=== PATIENT | female | born 1970 | race Caucasian/White ===

== ENCOUNTER 2016-11-09 12:14 | Emergency (ER) | payer MEDICAID ==
[~2016-11-09] VITALS: Ht 157.5 cm; Wt 70.5 kg
[~2016-11-09 12:14] MED LIST: ALLERGY10 MG PO; AMOXICILLIN 50500 MG PO; AMOXICILLIN875 MG PO; ANXIETY/DEPRESSION; BIOTIN1 MG PO; BUPROBAN150 MG PO; CARAFATE 1GM1 G PO; CEFTIN250 M1 PO; CEPHALEXIN500 M1 PO; CITRACAL + D CA1 TAB PO; CLARITIN 1010 MG/TAB PO; COLACE 100100 MG/CAP PO; CORTISPORIN EAR10 ML OT; DESYREL 100MG100 MG PO; DESYREL 50MG50 MG; DIFLUCAN200 MG PO; FERROUS SULFATE27 MG PO; FLAGYL500 MG PO; FLEXERIL 1010 MG/TAB PO; FLEXERIL5 MG PO; FLOMAX 0.40.4 MG/CAP PO; LAMICTAL XR200 MG PO; LATUDA40 MG PO; LEXAPRO; LEXAPRO20 MG PO; LORTAB 5/500 501 TAB PO; MIRALAX PA17 GM/Dose PO; MUCINEX 60600 MG/TA1 PO; MULTI VITAMINS1 TAB PO; MULTIPLE VITAMI1 TA5 PO; NATURAL IRON65 MG PO; NATURE'S BLE1000 MCG PO; NEURONTIN300 MG/CAP PO; NEXIUM 40MG40 MG PO; NO HOME MEDICATIONS; NORCO 325 MG-51 TAB PO; NORCO 325 MG-7.1 TAB PO; PERCOCET 325 MG1 TA2 PO; PHENERGAN W/CO120 M1 PO; PRIL40 PO; PRILOSEC 20MG20 MG PO; REXULTI1 MG PO; RITE AID BIO2500 MCG PO; SINGULAIR 110 MG/TAB PO; SUDAFED60 MG PO; TOPAMAX100 MG PO; TRAZODO50 MG PO; TRAZODONE50 MG PO; TUSS PO; ULTRAM 50MG TAB50 MG PO; VIIBRYD10 MG PO; VITAMIN B121000 MC2 SL; WELLBUTRIN SR100 M1 PO; WELLBUTRIN SR150 M1 PO; ZOFRAN 4MG T4 MG/TAB PO; ZOFRAN ODT4 MG PO; ZOFRAN ODT8 MG PO; ZOLOFT; [UNRECOGNIZED DRUG - OTHER] VG
[2016-11-09 12:18] VITALS: BP 141/74; TEMP 99.4
[2016-11-09 13:43] LABS: BASO % 0.4 % (0.0-2.0); EOS # 0.1 (0.0-0.7); EOS % 0.6 % (0-4.0); GRAN # 5.7 (1.4-6.5); HEMATOCRIT 43.5 % (37.0-47.0); HEMOGLOBIN 14.7 g/dl (12.5-16.0); LYMPH # 1.5 (1.2-3.4); LYMPH % 19.1 % (20.0-51.0); MEAN CELL VOLUME 95 fl (80.0-100.0); MEAN CORPUSCULAR HEMOGLOBIN 32 pg (27.0-31.0); MEAN CORPUSCULAR HGB CONC 34 g/dl (33.0-37.0); MEAN PLATELET VOLUME 11.7 fl (7.4-10.4); MONO # 0.6 (0.1-0.6); MONO % 7.5 % (1.7-9.3); PLATELET COUNT 180 K/mm3 (130-400); RED BLOOD COUNT 4.56 M/mm3 (4.10-5.30); REDCELL DISTRIBUTION WIDTH-CV 12.6 % (11.5-14.5)
[2016-11-09 13:57] LABS: ADJUSTED CALCIUM 9.5 mg/dL (8.4-10.2); ALBUMIN 3.9 gm/dL (3.5-5.0); BILIRUBIN,TOTAL 0.5 mg/dL (0.0-1.0); C-REACTIVE PROTEIN 2.3 mg/dL (0.0-0.9); CALCIUM 9.4 mg/dL (8.4-10.2); CREATININE, serum 0.85 mg/dL (0.52-1.25); POTASSIUM 3.9 mmol/L (3.4-5.0); TOTAL PROTEIN 7.2 gm/dL (6.4-8.2)
[2016-11-09 14:01] LABS: INFLUENZA B NEGATIVE
[2016-11-09 14:07] LABS: PH 5 (5-8); SQUAMOUS EPITHELIAL 0-2 /hpf; URINE APPEARANCE Clear; URINE BACTERIA None Seen /hpf; URINE BILIRUBIN Negative (NEGATIVE); URINE BLOOD Negative (NEGATIVE); URINE COLOR Yellow; URINE GLUCOSE Negative (NEGATIVE); URINE KETONE 2+ (NEGATIVE); URINE RBC 0-2 /hpf; URINE UROBILINOGEN Negative (NEGATIVE); URINE WBC 0-2 /hpf
[2016-11-09 15:06] VITALS: PULSE 96
[2017-05-16] MEDS ORDERED: SEROQUEL 200MG200 MG PO (14:49)
== END 2016-11-09 15:06 | disposition home or self-care (01) ==
LOC: COL.ER 12:14
PROVIDERS: Nurse Practitioner
DX: J10.1 Influenza due to other identified influenza virus with other respiratory manifestations (principal); F17.210 Nicotine dependence, cigarettes, uncomplicated; R10.817 Generalized abdominal tenderness
CPT/HCPCS: J2405; J7030

== ENCOUNTER 2017-02-22 16:09 | Emergency (ER) | payer MEDICAID ==
[~2017-02-22] VITALS: Ht 154.9 cm; Wt 70.5 kg
[2017-02-22 16:12] VITALS: BP 137/81; TEMP 98.8
[2017-02-22] MEDS ORDERED: BACTRIM DS 8001 TAB PO (16:29)
[2017-02-22] MEDS ORDERED: CEPHALEXIN500 M1 PO (16:29)
[2017-02-22 17:08] VITALS: PULSE 78
[2017-05-16] MEDS ORDERED: SEROQUEL 200MG200 MG PO (14:49)
== END 2017-02-22 17:08 | disposition home or self-care (01) ==
LOC: COL.ER 16:09
DX: L03.211 Cellulitis of face (principal); F41.9 Anxiety disorder, unspecified; Z98.84 Bariatric surgery status

== ENCOUNTER 2017-03-02 10:36 | Emergency (ER) | payer MEDICAID ==
[~2017-03-02] VITALS: Ht 154.9 cm; Wt 70.5 kg
[~2017-03-02 10:36] MED LIST changes: +BACTRIM DS 8001 TAB PO
[2017-03-02 10:46] VITALS: BP 107/79; TEMP 98.5
[2017-03-02 11:21] LABS: BASO % 0.4 % (0.0-2.0); EOS # 0.2 (0.0-0.7); EOS % 1.9 % (0-4.0); GRAN # 4.1 (1.4-6.5); GRAN % 47.4 % (42.2-75.2); HEMATOCRIT 42.4 % (37.0-47.0); LYMPH # 3.7 (1.2-3.4); LYMPH % 43.1 % (20.0-51.0); MEAN CELL VOLUME 96 fl (80.0-100.0); MEAN CORPUSCULAR HEMOGLOBIN 32 pg (27.0-31.0); MEAN CORPUSCULAR HGB CONC 33 g/dl (33.0-37.0); MEAN PLATELET VOLUME 10.8 fl (7.4-10.4); MONO # 0.6 (0.1-0.6); PLATELET COUNT 240 K/mm3 (130-400); RED BLOOD COUNT 4.41 M/mm3 (4.10-5.30); WHITE BLOOD COUNT 8.6 K/mm3 (4.8-10.8)
[2017-03-02 11:33] LABS: ADJUSTED CALCIUM 8.7 mg/dL (8.4-10.2); ALANINE AMINOTRANSFERASE 19 U/L (9-52); ALBUMIN 4.1 gm/dL (3.5-5.0); ALKALINE PHOSPHATASE 66 U/L (50-136); ANION GAP 12 mmol/L (7-16); BILIRUBIN,TOTAL 0.6 mg/dL (0.0-1.0); BLOOD UREA NITROGEN 10 mg/dL (7-17); CALCIUM 8.8 mg/dL (8.4-10.2); CARBON DIOXIDE 24 mmol/L (22-30); CHLORIDE 103 mmol/L (98-107); CREATININE, serum 0.84 mg/dL (0.52-1.25); GLUCOSE 67 mg/dL (74-106); POTASSIUM 3.9 mmol/L (3.4-5.0); SODIUM 139 mmol/L (137-145); TOTAL PROTEIN 7.1 gm/dL (6.4-8.2)
[2017-03-02 11:38] LABS: AMPHETAMINE URINE NEGATIVE; BARBITURATES URINE NEGATIVE; BENZODIAZEPINES URINE POSITIVE; BUPRENORPHINE URINE NEGATIVE; METHADONE URINE NEGATIVE; OPIATES URINE NEGATIVE; OXYCODONE URINE NEGATIVE; PHENCYCLIDINE URINE NEGATIVE; PROPOXYPHENE URINE NEGATIVE; THC CANNABINOIDS URINE POSITIVE
[2017-03-02 11:38] LABS: ACETAMINOPHEN < 10 ug/mL (10-30); SALICYLATE < 1.0 mg/dL
[2017-03-02 14:35] VITALS: PULSE 76
[2017-05-16] MEDS ORDERED: SEROQUEL 200MG200 MG PO (14:49)
== END 2017-03-02 14:37 | disposition home or self-care (01) ==
LOC: COL.ER 10:36
PROVIDERS: Physician Assistant
DX: F32.9 Major depressive disorder, single episode, unspecified (principal); F41.9 Anxiety disorder, unspecified; F17.210 Nicotine dependence, cigarettes, uncomplicated

== ENCOUNTER → 2017-05-16 | Outpatient (CLI) | payer MEDICAID ==
[~2017-05-16] VITALS: Ht 154.9 cm; Wt 70.3 kg
[~2017-05-16] MED LIST changes: +MAGIC MOUTHWASH1 M1 PO; +SEROQUEL 200MG200 MG PO
[2017-05-16 14:49] VITALS: BP 114/80
== END ==
LOC: LIGHT 14:20
DX: Z98.84 Bariatric surgery status (principal); Z68.29 Body mass index [BMI] 29.0-29.9, adult; Z71.3 Dietary counseling and surveillance

== ENCOUNTER 2017-05-23 11:37 | Emergency (ER) | payer MEDICAID ==
[~2017-05-23] VITALS: Ht 154.9 cm; Wt 70.5 kg
[~2017-05-23 11:37] MED LIST changes: -MAGIC MOUTHWASH1 M1 PO
[2017-05-23 11:38] VITALS: BP 137/82; TEMP 98.8
[2017-05-23 12:36] LABS: BASO # 0.1 (0.0-0.2); BASO % 0.6 % (0.0-2.0); EOS # 0.1 (0.0-0.7); EOS % 1.5 % (0-4.0); GRAN # 4.8 (1.4-6.5); GRAN % 56.4 % (42.2-75.2); HEMATOCRIT 38.2 % (37.0-47.0); HEMOGLOBIN 12.6 g/dl (12.5-16.0); LYMPH # 3.1 (1.2-3.4); MEAN CELL VOLUME 97 fl (80.0-100.0); MEAN CORPUSCULAR HEMOGLOBIN 32 pg (27.0-31.0); MEAN CORPUSCULAR HGB CONC 33 g/dl (33.0-37.0); MEAN PLATELET VOLUME 11.2 fl (7.4-10.4); MONO # 0.5 (0.1-0.6); MONO % 5.3 % (1.7-9.3); PLATELET COUNT 224 K/mm3 (130-400); RED BLOOD COUNT 3.96 M/mm3 (4.10-5.30); REDCELL DISTRIBUTION WIDTH-CV 12.4 % (11.5-14.5); WHITE BLOOD COUNT 8.5 K/mm3 (4.8-10.8)
[2017-05-23] MEDS ORDERED: MAGIC MOUTHWASH1 M1 PO (13:25)
[2017-05-23 13:40] VITALS: PULSE 68
== END 2017-05-23 13:40 | disposition home or self-care (01) ==
LOC: COL.ER 11:37
PROVIDERS: Physician Assistant
DX: K14.0 Glossitis (principal); F41.9 Anxiety disorder, unspecified; F32.9 Major depressive disorder, single episode, unspecified

== ENCOUNTER 2018-04-03 12:24 | Emergency (ER) | payer MEDICAID ==
[~2018-04-03] VITALS: Ht 154.9 cm; Wt 79.5 kg
[~2018-04-03 12:24] MED LIST changes: +MAGIC MOUTHWASH1 M1 PO
[2018-04-03 12:29] VITALS: TEMP 97.8
[2018-04-03] MEDS ORDERED: NEXIUM 20MG20 MG PO (13:08)
[2018-04-03] MEDS ORDERED: VRAYLAR3 MG PO (13:09)
[2018-04-03] MEDS ORDERED: DESYREL 50MG50 MG PO (13:10)
[2018-04-03] MEDS ORDERED: VISTARIL 2525 MG/CAP PO (13:10)
[2018-04-03 13:24] LABS: COLLECTION METHOD CLEAN CATCH
[2018-04-03 13:40] LABS: BASO # 0.1 (0.0-0.2); BASO % 0.4 % (0.0-2.0); EOS # 0.2 (0.0-0.7); EOS % 1.7 % (0-4.0); GRAN # 5.2 (1.4-6.5); GRAN % 46.4 % (42.2-75.2); HEMATOCRIT 40.5 % (37.0-47.0); LYMPH # 4.9 (1.2-3.4); LYMPH % 43.7 % (20.0-51.0); MEAN CELL VOLUME 92 fl (80.0-100.0); MEAN CORPUSCULAR HEMOGLOBIN 32 pg (27.0-31.0); MEAN CORPUSCULAR HGB CONC 35 g/dl (33.0-37.0); MEAN PLATELET VOLUME 10.4 fl (7.4-10.4); MONO # 0.8 (0.1-0.6); MONO % 7.4 % (1.7-9.3); PLATELET COUNT 302 K/mm3 (130-400); REDCELL DISTRIBUTION WIDTH-CV 12.2 % (11.5-14.5)
[2018-04-03 13:45] LABS: MUCOUS Present /lpf; PH 5 (5-8); URINE APPEARANCE Hazy; URINE BACTERIA None Seen /hpf; URINE BILIRUBIN Negative (NEGATIVE); URINE BLOOD Negative (NEGATIVE); URINE COLOR Yellow; URINE GLUCOSE Negative (NEGATIVE); URINE KETONE Negative (NEGATIVE); URINE LEUKOCYTE ESTERASE Negative (NEGATIVE); URINE NITRATE Negative (NEGATIVE); URINE PROTEIN(semi-quant) 1+ (NEGATIVE); URINE RBC 0-2 /hpf
[2018-04-03 13:53] LABS: ALBUMIN 3.7 gm/dL (3.5-5.0); BILIRUBIN,TOTAL 0.4 mg/dL (0.0-1.0); C-REACTIVE PROTEIN 0.7 mg/dL (0.0-0.9); CALCIUM 9.1 mg/dL (8.4-10.2); CREATININE, serum 0.84 mg/dL (0.52-1.25); POTASSIUM 3.5 mmol/L (3.4-5.0)
[2018-04-03] MEDS ORDERED: ZOFRAN ODT4 MG PO (15:12)
[2018-04-03] MEDS ORDERED: CARAFATE 1GM1 G PO (15:12)
[2018-04-03] MEDS ORDERED: NORCO 325 MG-51 TAB PO (15:16)
[2018-04-03 15:34] VITALS: BP 120/78; PULSE 66
== END 2018-04-03 15:34 | disposition home or self-care (01) ==
LOC: COL.ER 12:24
PROVIDERS: Emergency Medicine
DX: R10.13 Epigastric pain (principal); Z90.710 Acquired absence of both cervix and uterus; Z90.49 Acquired absence of other specified parts of digestive tract
CPT/HCPCS: J2405; J7030

== ENCOUNTER 2018-05-29 06:51 | Day surgery (SDC) | payer MEDICAID ==
[~2018-05-29] VITALS: Ht 154.9 cm; Wt 81.8 kg
[~2018-05-29 06:51] MED LIST changes: +DESYREL 50MG50 MG PO; +NEXIUM 20MG20 MG PO; +VISTARIL 2525 MG/CAP PO; +VRAYLAR3 MG PO
[2018-05-29 07:19] VITALS: BP 147/104; PULSE 68; TEMP 98.2
[2018-05-29] MEDS ORDERED: GAS RELIEF125 MG PO (07:32)
[2018-05-29 08:30] VITALS: BP 114/84; PULSE 71; TEMP 98.7
[2018-05-29 08:45] VITALS: BP 126/87; PULSE 64
[2018-05-29 09:00] VITALS: BP 139/99; PULSE 63
== END 2018-05-29 09:20 | disposition home or self-care (01) ==
LOC: SDCO 06:51
DX: K44.9 Diaphragmatic hernia without obstruction or gangrene (principal); K29.30 Chronic superficial gastritis without bleeding; E78.00 Pure hypercholesterolemia, unspecified; G47.30 Sleep apnea, unspecified; Z90.710 Acquired absence of both cervix and uterus; Z90.49 Acquired absence of other specified parts of digestive tract; Z88.8 Allergy status to other drugs, medicaments and biological substances; Z98.84 Bariatric surgery status; Z85.41 Personal history of malignant neoplasm of cervix uteri; Z80.1 Family history of malignant neoplasm of trachea, bronchus and lung; Z83.3 Family history of diabetes mellitus; Z80.49 Family history of malignant neoplasm of other genital organs; Z80.3 Family history of malignant neoplasm of breast
CPT/HCPCS: OP; J2250; J3010; J7030

== ENCOUNTER 2020-03-06 12:31 | Emergency (ER) | payer SELFPAY ==
[~2020-03-06] VITALS: Ht 154.9 cm; Wt 70.5 kg
[~2020-03-06 12:31] MED LIST changes: +GAS RELIEF125 MG PO; -LAMICTAL XR200 MG PO; +LAMICTAL200 MG PO
[2020-03-06 12:44] VITALS: BP 151/86; TEMP 98.2
[2020-03-06 13:24] LABS: HEMATOCRIT 44.5 % (37.0-47.0); HEMOGLOBIN 14.6 g/dl (12.5-16.0); MEAN CELL VOLUME 94 fl (80.0-100.0); MEAN CORPUSCULAR HEMOGLOBIN 31 pg (27.0-31.0); MEAN CORPUSCULAR HGB CONC 33 g/dl (33.0-37.0); MEAN PLATELET VOLUME 11.3 fl (7.4-10.4); PLATELET COUNT 268 K/mm3 (130-400); RED BLOOD COUNT 4.73 M/mm3 (4.10-5.30); REDCELL DISTRIBUTION WIDTH-CV 12.9 % (11.5-14.5)
[2020-03-06 13:37] LABS: ALBUMIN 4.1 gm/dL (3.5-5.0); BILIRUBIN,TOTAL 0.4 mg/dL (0.0-1.0); CALCIUM 9.4 mg/dL (8.4-10.2); CREATININE, serum 0.81 (0.52-1.25); TOTAL PROTEIN 7.5 gm/dL (6.4-8.2)
[2020-03-06 13:55] LABS: BAND 1 % (0-10); NEUTROPHILS 69 % (42.0-75.2)
[2020-03-06 13:58] LABS: LYMPHOCYTE 28 % (20.0-51.0); PLATELET ESTIMATE NORMAL (NORMAL)
[2020-03-06 14:28] LABS: COLLECTION METHOD CLEAN CATCH
[2020-03-06] MEDS ORDERED: COLACE 100100 MG/CAP PO (14:40)
[2020-03-06 14:41] LABS: MUCOUS Present /lpf; PH 5 (5-8); URINE APPEARANCE Clear; URINE BACTERIA None Seen /hpf; URINE BILIRUBIN Negative (NEGATIVE); URINE BLOOD Negative (NEGATIVE); URINE COLOR Yellow; URINE GLUCOSE Negative (NEGATIVE); URINE KETONE Negative (NEGATIVE); URINE LEUKOCYTE ESTERASE Negative (NEGATIVE); URINE NITRATE Negative (NEGATIVE); URINE PROTEIN(semi-quant) Negative (NEGATIVE); URINE RBC 0-2 /hpf; URINE UROBILINOGEN Negative (NEGATIVE)
[2020-03-06 15:13] VITALS: PULSE 67
[2020-03-07 08:30] LABS: PATHOLOGY DIFF REVIEW OK
== END 2020-03-06 15:13 | disposition home or self-care (01) ==
LOC: COL.ER 12:31
PROVIDERS: Nurse Practitioner Primary Care
DX: K59.00 Constipation, unspecified (principal); F32.9 Major depressive disorder, single episode, unspecified; F41.9 Anxiety disorder, unspecified; Z90.49 Acquired absence of other specified parts of digestive tract; Z90.710 Acquired absence of both cervix and uterus; Z87.442 Personal history of urinary calculi
CPT/HCPCS: J1170; J2270; J2405; J7030; Q9967

== ENCOUNTER 2020-05-13 19:35 | Emergency (ER) | payer SELFPAY ==
[~2020-05-13] VITALS: Ht 154.9 cm; Wt 72.7 kg
[2020-05-13 19:41] VITALS: TEMP 97.9
[2020-05-13 20:11] LABS: BASO % 0.4 % (0.0-2.0); EOS # 0.1 (0.0-0.7); EOS % 1.1 % (0-4.0); GRAN # 4.9 (1.4-6.5); HEMATOCRIT 42.3 % (37.0-47.0); HEMOGLOBIN 13.7 g/dl (12.5-16.0); LYMPH # 4.5 (1.2-3.4); LYMPH % 44.4 % (20.0-51.0); MEAN CELL VOLUME 96 fl (80.0-100.0); MEAN CORPUSCULAR HEMOGLOBIN 31 pg (27.0-31.0); MEAN CORPUSCULAR HGB CONC 32 g/dl (33.0-37.0); MEAN PLATELET VOLUME 11.4 fl (7.4-10.4); MONO # 0.5 (0.1-0.6); MONO % 4.9 % (1.7-9.3); PLATELET COUNT 240 K/mm3 (130-400); RED BLOOD COUNT 4.43 M/mm3 (4.10-5.30); REDCELL DISTRIBUTION WIDTH-CV 13.8 % (11.5-14.5)
[2020-05-13 20:17] LABS: COLLECTION METHOD CLEAN CATCH
[2020-05-13 20:22] LABS: MUCOUS Present /lpf; PH 6 (5-8); URINE APPEARANCE Hazy; URINE BACTERIA None Seen /hpf; URINE BILIRUBIN Negative (NEGATIVE); URINE BLOOD Negative (NEGATIVE); URINE COLOR Yellow; URINE GLUCOSE Negative (NEGATIVE); URINE KETONE Negative (NEGATIVE); URINE LEUKOCYTE ESTERASE Negative (NEGATIVE); URINE NITRATE Negative (NEGATIVE); URINE PROTEIN(semi-quant) Negative (NEGATIVE); URINE RBC 0-2 /hpf
[2020-05-13 20:27] LABS: ALANINE AMINOTRANSFERASE 10 U/L (4-34); ALBUMIN 4.1 gm/dL (3.5-5.0); ALKALINE PHOSPHATASE 96 U/L (50-136); ANION GAP 5 mmol/L (7-16); AST,SGOT 24 U/L (15-37); BILIRUBIN,TOTAL 0.3 mg/dL (0.0-1.0); BLOOD UREA NITROGEN 12 mg/dL (7-17); CALCIUM 9.1 mg/dL (8.4-10.2); CARBON DIOXIDE 26 mmol/L (22-30); CHLORIDE 107 mmol/L (98-107); CREATININE, serum 0.81 (0.52-1.25); GLUCOSE 103 mg/dL (74-106); LIPASE 345 U/L (23-300); POTASSIUM 3.6 mmol/L (3.4-5.0); SODIUM 138 mmol/L (137-145); TOTAL PROTEIN 7.3 gm/dL (6.4-8.2)
[2020-05-13 20:37] LABS: C-REACTIVE PROTEIN < 0.5 mg/dL (0.0-0.9); TROPONIN-I < 0.012 ng/mL (0.000-0.035)
[2020-05-13] MEDS ORDERED: FLEXERIL 1010 MG/TAB PO (21:56)
[2020-05-13 22:16] VITALS: BP 103/73; PULSE 88
== END 2020-05-13 22:20 | disposition home or self-care (01) ==
LOC: COL.ER 19:35
PROVIDERS: Emergency Medicine
DX: R10.9 Unspecified abdominal pain (principal); F17.210 Nicotine dependence, cigarettes, uncomplicated; Z90.49 Acquired absence of other specified parts of digestive tract; Z90.710 Acquired absence of both cervix and uterus; Z87.442 Personal history of urinary calculi
CPT/HCPCS: J1885; J2360; J2405; J3010; Q9967